=== PATIENT | female | born 1960 | race Caucasian/White ===

== ENCOUNTER 2018-02-09 18:29 | Emergency (ER) | payer OTHER ==
[~2018-02-09] VITALS: Ht 167.6 cm; Wt 68.0 kg
[2018-02-09 20:53] LABS: ABSOLUTE BASOPHIL COUNT 0 /CUMM (0.0-0.2); ABSOLUTE EOSINOPHIL COUNT 0 /CUMM (0.0-0.7); ABSOLUTE GRANULOCYTE CT 2.4 /CUMM (1.4-6.5); ABSOLUTE LYMPH COUNT 1.9 /CUMM (1.2-3.4); ABSOLUTE MONOCYTE COUNT 0.3 /CUMM (0.10-0.60); BASOPHIL % 0.3 % (0.0-2.0); EOSINOPHIL % 0.4 % (0-5); GRANULOCYTE % 51.9 % (42.2-75.2); HEMATOCRIT 42.2 % (37-47); MEAN CORPUSCULAR HGB 32.9 PG (27.0-31.0); MEAN CORPUSCULAR HGB CONC 34.2 G/DL (33.0-37.0); MEAN CORPUSCULAR VOLUME 96.2 FL (81.0-99.0); MEAN PLATELET VOLUME 7.9 FL (7.4-10.4); PLATELET COUNT 176 /CUMM (130-400); RBC DISTRIBUTION WIDTH 13.9 % (11.5-14.5); RED BLOOD CELL CT 4.39 /CUMM (4.20-5.40); WHITE BLOOD CELL COUNT 4.7 /CUMM (4.8-10.8)
--- NOTE | 2018-02-09 21:10 | ED PSYCHIATRIC COMPLAINT ---
History of Present Illness General Chief Complaint: ETOH/Drug Related Complaint Stated Complaint: HERE FOR Impact CLEARANCE Source: patient Exam Limitations: no limitations Vital Signs & Intake/Output Vital Signs & Intake/Output Vital Signs Date Time Temp Pulse Resp B/P B/P Pulse O2 O2 Flow FiO2 Mean Ox Delivery Rate 02/10 2212 Room Air 02/09 2119 97.8 71 20 126/66 99 Room Air 02/09 1836 98.4 76 18 136/84 98 Room Air ED Intake and Output 02/10 0000 02/09 1200 Intake Total Output Total Balance Patient 150 lb Weight Weight Reported by Patient Measurement Method Allergies Coded Allergies: No Known Allergies (02/09/18) Reconcile Medications No Known Home Medications Triage Note: 57 YO FEMALE TO TRIAGE FOR [facility]. REPORTS DRINKS 1 BOTTLE OF WINE DAILY, LAST DRINK A COUPLD HOURS AGO. DENIES SEIZURE HX. PT NOTED WITH BRUISE TO R EYE AND SWELLING TO R CHEECK. 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 DENEIS C-SPINE TENDERNESS. PER PTS NOSE WAS BLEEDING WELLNESS HEALTH COACH, NO BLEEDING AT THIS TIME. Triage Nurses Notes Reviewed? yes Onset: Abrupt Duration: day(s): Timing: recent history Severity: mild, moderate HPI: 57-year-old female comes into the emergency room for medical clearance for alcohol detox at [facility]. Patient has been drinking for over 20 years. She drinks wine daily. Minimal 3 glasses but reports that she drinks more regularly. Denies any history of seizure withdrawal. Denies any history of DTs. Denies any suicidal or homicidal ideation. Denies any other associated symptoms. She does report that she fell earlier today and has some swelling to the right side of her face. This was the decision to finally get some help. They have spoke with [facility] about a month ago and as long she gets medically cleared [facility] will pick her up tomorrow. Emergency room. She reports some mild pain to her right eye but does not feel that she broke anything. No loss of consciousness. Denies any neck pain. Denies any vomiting. Denies any anticoagulants that she is on. (Dhiraj Hernández) Past History Travel History Traveled to [place] past 21 day No Medical History Any Pertinent Medical History? see below for history Neurological: NONE EENT: NONE Cardiovascular: NONE Respiratory: NONE Gastrointestinal: NONE Hepatic: NONE Renal: NONE Musculoskeletal: NONE Psychiatric: NONE Endocrine: NONE Blood Disorders: NONE Cancer(s): NONE INFANTRY OFFICER/Reproductive: NONE Surgical History Surgical History: non-contributory Psychosocial History What is your primary language Citizen Of [place] Tobacco Use: Never used ETOH Use: alcoholic Illicit Drug Use: denies illicit drug use Family History Hx Contributory? No (Dhiraj Hernández) Review of Systems Review of Systems Constitutional: Reports: no symptoms. EENTM: Reports: see HPI. Respiratory: Reports: no symptoms. Cardiovascular: Reports: no symptoms. GI: Reports: no symptoms. Genitourinary: Reports: no symptoms. Musculoskeletal: Reports: no symptoms. Skin: Reports: no symptoms. Neurological/Psychological: Reports: see HPI. Hematologic/Endocrine: Reports: no symptoms. Immunologic/Allergic: Reports: no symptoms. All Other Systems: Reviewed and Negative (Dhiraj Hernández) Physical Exam Physical Exam General Appearance: well developed/nourished, mild distress Head: ecchymosis (Right periorbital), no bony tenderness of right orbit Eyes: Bilateral: normal appearance, PERRL, EOMI. Ears, Nose, Throat: normal ENT inspection, hearing grossly normal Neck: normal inspection, supple Respiratory: normal breath sounds Cardiovascular: regular rate/rhythm Gastrointestinal: soft, non-tender Extremities: normal range of motion Neurological/Psychiatric: alert, normal mood/affect Appearance/Memory/Insight: appropriate appearance Behavoir/Eye Contact/Speech: cooperative Thoughts/Hallucinations: normal thought pattern Skin: intact, normal color, warm/dry SAD PERSONS Done? patient not suicidal (Dhiraj Hernández) Progress Differential Diagnosis: dementia, drug intoxication, drug overdose, drug withdrawal Plan of Care: Orders Procedure Date/time Status [facility] 02/09 1909 Active URINE DRUGS OF ABUSE 02/09 1909 Complete ETHANOL 02/09 1909 Complete COMPREHENSIVE METABOLIC PANEL 02/09 1909 Complete CBC WITHOUT DIFFERENTIAL 02/09 1909 Complete Laboratory Tests 02/09/182124: Urine Opiates Screen < 100, Methadone Screen < 40, Barbiturate Screen < 60, Ur Phencyclidine Scrn < 6.00, Amphetamines Screen < 100, U Benzodiazepines Scrn < 85, Urine Cocaine Screen < 50, Urine Cannabis Screen 18.00 02/09/180: Anion Gap 15, Estimated GFR > 60, BUN/Creatinine Ratio 15.0, Glucose 115 H, Calcium 10.0, Total Bilirubin 0.4, AST 31, ALT 30, Alkaline Phosphatase 62, Total Protein 7.9, Albumin 5.0, Globulin 2.9, Albumin/Globulin Ratio 1.7, CBC w Diff NO MAN DIFF REQ, RBC 4.39, MCV 96.2, MCH 32.9 H, MCHC 34.2, RDW 13.9, MPV 7.9, Gran % 51.9, Lymphocytes % 41.2, Monocytes % 6.2, Eosinophils % 0.4, Basophils % 0.3, Absolute Granulocytes 2.4, Absolute Lymphocytes 1.9, Absolute Monocytes 0.3, Absolute Eosinophils 0, Absolute Basophils 0, Serum Alcohol 252.0 Hand-Off Endorsed To: Manuel BOUDREAUX,Gamaliel Gallardo Pending: 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 I have also reviewed all the pertinent lab results and diagnostic results. I agree with the findings and the plan of care as documented in the PA's/HEAT TREATMENT TECHNICIAN's documentation. [X] I have reviewed the ED Record and agree with the PA's/HEAT TREATMENT TECHNICIAN's documentation. [] Additions or exceptions (if any) to the PAs/HEAT TREATMENT TECHNICIAN's note and plan are summarized below: [] (Manuel BOUDREAUX,Gamaliel Gallardo)
[2018-02-10 07:27] VITALS: BP 126/66
== END 2018-02-10 07:41 ==
LOC: ERH 18:29
PROVIDERS: Physician Assistant Medical
DX: F10.10 Alcohol abuse, uncomplicated (principal)
CPT/HCPCS: 80307; G0480